=== PATIENT | female | born 1995 | race Two or more races ===

== ENCOUNTER 2019-09-17 05:57 | Observation (INO) | payer MEDICAID, OTHER ==
[~2019-09-17] VITALS: Ht 149.9 cm; Wt 71.7 kg
[2019-09-17] MEDS ORDERED: LACTATED RINGER'S 1,000 ML IV ONE (07:00)
[2019-09-17] MEDS: TERBUTALINE SULFATE 1 MG/ML 1ML VIAL SC SCH ×3 (07:16→07:56)
[2019-09-17] MEDS ORDERED: BETAMETHASONE ACET (6MG/ML) 5ML VIAL IM ONE (09:00)
[2019-09-17] MEDS ORDERED: LACTATED RINGER'S 1,000 ML IV SCH (09:15)
[2019-09-17] MEDS ORDERED: NIFEdipine 10 MG CAP PO SCH (09:15)
[2019-09-18] MEDS ORDERED: PREN-153 OR (21:48)
[2019-09-18] MEDS ORDERED: NIF10C PO (21:48)
== END 2019-09-17 12:27 | disposition home or self-care (01) | DRG 566 ==
LOC: LDRP 05:57
PROVIDERS: ADMIT Specialist; ATTEND Specialist
DX: O62.9 Abnormality of forces of labor, unspecified (principal); Z3A.37 37 weeks gestation of pregnancy
CPT/HCPCS: 59025; 81002; 94760; 96365; 96372; G0378; J0702; J3105

== ENCOUNTER 2019-09-18 01:11 | Inpatient (IN) | payer MEDICAID ==
[~2019-09-18] VITALS: Ht 149.9 cm; Wt 71.7 kg
[2019-09-18] VITALS (16 sets, daily range): BP systolic 99–115; BP diastolic 40–74
[2019-09-18] MEDS ORDERED: TERBUTALINE SULFATE 1 MG/ML 1ML VIAL SC ONE ×3 (01:32→09:00)
[2019-09-18] MEDS: LACTATED RINGER'S 1,000 ML IV SCH ×4 (01:44→15:47)
[2019-09-18] MEDS ORDERED: NIFEdipine 10 MG CAP ONE (01:56)
[2019-09-18] MEDS ORDERED: ceFAZolin 1GM/50ML 50 ML IV ONE (01:56)
[2019-09-18] MEDS: NIFEdipine 10 MG CAP PO SCH ×2 (02:00→07:45)
[2019-09-18] MEDS ORDERED: ceFAZolin 1GM/50ML 50 ML IV SCH ×3 (02:00→18:00)
[2019-09-18 02:28] LABS: Basophils # (auto) 0 10 ^3/uL (0-0.2); Eosinophils # (auto) 0 10 ^3/uL (0-0.8); Hematocrit 37.7 % (36.0-46.0); Hemoglobin 12.3 g/dL (12.2-16.2); Lymphocytes % (auto) 29.7 % (10.0-50.0); Mean Corpuscular Hemoglobin 27.6 pg (28.0-32.0); Mean Corpuscular Hgb Conc. 32.6 g/dL (32.0-36.0); Mean Corpuscular Volume 84.6 fL (80.0-100.0); Monocytes # (auto) 0.6 10 ^3/uL (0-1.3); Neutrophils # (auto) 4.2 10 ^3/uL (1.6-8.6); Neutrophils % (auto) 61.3 % (37.0-80.0); Nucleated Red Blood Cells % 0.1 %; Platelet Count (auto) 264 10^3/uL (140-450); Red Blood Cells 4.45 10^6/uL (4.0-5.20); Red Cell Distribution Width 13.7 % (11.8-14.3); White Blood Cell 6.8 10^3/uL (4.4-10.8)
[2019-09-18] MEDS: TERBUTALINE SULFATE 1 MG/ML 1ML VIAL SC SCH ×3 (02:31→09:00)
[2019-09-18 02:43] LABS: Alcohol, Urine < 3.0 mg/dL (0-5); Amphetamine Screen, Urine NEGATIVE (NEGATIVE); Barbiturate Scree,Urine NEGATIVE (NEGATIVE); Benzodiazephine Screen, Urine NEGATIVE (NEGATIVE); Cannabinoid Screen, Urine NEGATIVE (NEGATIVE); Cocaine Screen, Urine NEGATIVE (NEGATIVE); Opiate Scree,Urine NEGATIVE (NEGATIVE); Phencyclidine Screen, Urine NEGATIVE (NEGATIVE)
[2019-09-18 02:44] LABS: Albumin 2.4 g/dL (3.4-5.0)
[2019-09-18 02:46] LABS: BUN/Creatinine Ratio 10.5
[2019-09-18 02:48] LABS: INR 0.96 (0.9-1.15); Partial Thromboplastin Time 24.6 sec (23.64-32.05)
[2019-09-18 02:49] LABS: Urine Bacteria NONE SEEN /hpf (None Seen); Urine Blood Negative /uL (Negative); Urine Specific Gravity 1.005 (1.001-1.035); Urine WBC 2 /hpf (0 - 5)
[2019-09-18 02:49] LABS: Bilirubin, Total 0.2 mg/dL (0.2-1.0); Total Protein 7.5 g/dL (6.4-8.2)
[2019-09-18 02:53] LABS: Potassium 2.9 mmol/L (3.5-5.1)
[2019-09-18] MEDS ORDERED: POTASSIUM CHL 20 Meq TABLET PO ONE ×2 (02:56→03:15)
[2019-09-18] MEDS ORDERED: POTASSIUM CHL 20MEQ/100ML 200 ML IV ONE (03:04)
[2019-09-18] MEDS: POTASSIUM CHL 20MEQ/100ML 100 ML IV SCH ×2 (05:00→07:58)
[2019-09-18] MEDS ORDERED: BETAMETHASONE ACET (6MG/ML) 5ML VIAL IM SCH (05:30)
[2019-09-18] MEDS ORDERED: NIFEdipine 10 MG CAP PO SCH (06:00)
[2019-09-18] MEDS ORDERED: fentaNYL CITRATE 100 MCG/2 ML VL ONE (09:15)
[2019-09-18] MEDS ORDERED: MORPHINE SULF(PF) 0.5MG/ML 10ML VIAL ONE (09:15)
[2019-09-18] MEDS ORDERED: oxyTOCIN 10 UNIT/ML 10ML VIAL ONE (10:23)
[2019-09-18] MEDS ORDERED: ceFAZolin 1GM VL ONE (10:24)
[2019-09-18] MEDS ORDERED: KETOROLAC TROMETH 15 mg/ml 1ML VL IV PRN (11:15)
[2019-09-18] MEDS ORDERED: HYDROmorphone HCL 2 MG/ML VL IV PRN (11:15)
[2019-09-18] MEDS ORDERED: ONDANSETRON HCL 4 MG/2 ML VIAL IV PRN ×2 (11:15)
[2019-09-18] MEDS ORDERED: ACETAMINOPHEN IV 1000 MG/100ML (10MG/ML) IV ONE (11:15)
[2019-09-18] MEDS ORDERED: KETOROLAC TROMETH 30 MG/ML 1ML VIAL IV PRN (14:45)
[2019-09-18] MEDS ORDERED: TETANUS-DIPTH-ACEL PERTUSSIS 0.5ML SYR Tdap IM ONE (20:00)
[2019-09-18] MEDS ORDERED: NIF10C PO (21:48)
[2019-09-18] MEDS ORDERED: PREN-153 OR (21:48)
[2019-09-19] MEDS: ceFAZolin 1GM/50ML 50 ML IV SCH ×2 (01:50→10:01)
[2019-09-19] MEDS: LACTATED RINGER'S 1,000 ML IV SCH ×2 (01:50→03:06)
[2019-09-19 03:00] VITALS: BP 94/58
[2019-09-19 07:00] LABS: Basophils # (auto) 0 10 ^3/uL (0-0.2); Basophils % (auto) 0.2 % (0.0-2.0); Eosinophils # (auto) 0 10 ^3/uL (0-0.8); Eosinophils % (auto) 0.2 % (0.0-7.0); Hematocrit 26.8 % (36.0-46.0); Hemoglobin 8.9 g/dL (12.2-16.2); Lymphocytes # (auto) 1.9 10 ^3/uL (0.4-5.4); Lymphocytes % (auto) 26.7 % (10.0-50.0); Mean Corpuscular Hgb Conc. 33.3 g/dL (32.0-36.0); Monocytes # (auto) 0.9 10 ^3/uL (0-1.3); Monocytes % (auto) 12.5 % (0.0-12.0); Neutrophils # (auto) 4.4 10 ^3/uL (1.6-8.6); Neutrophils % (auto) 60.4 % (37.0-80.0); Platelet Count (auto) 229 10^3/uL (140-450); Red Blood Cells 3.19 10^6/uL (4.0-5.20); Red Cell Distribution Width 13.7 % (11.8-14.3); White Blood Cell 7.2 10^3/uL (4.4-10.8)
[2019-09-19 07:20] VITALS: BP 103/48
[2019-09-19] MEDS ORDERED: BISACODYL 10 MG RECT SUPP PR PRN (07:45)
[2019-09-19] MEDS ORDERED: HYDROcodone-ACET 5/325MG TAB PO PRN (07:45)
[2019-09-19] MEDS ORDERED: SIMETHICONE 80 MG CHEWABLE TABLET PO PRN (07:45)
[2019-09-19] MEDS: DOCUSATE SOD 100 MG CAP PO SCH ×2 (10:01→22:16)
[2019-09-19] MEDS: DOCUSATE CALCIUM 240 MG CAP PO SCH (10:01)
[2019-09-19] MEDS: HYDROcodone-ACET 5/325MG TAB PO PRN (10:05)
[2019-09-19 10:35] VITALS: BP 96/52
[2019-09-19] MEDS: IBUPROFEN 800 MG TAB PO PRN (15:05)
[2019-09-19 15:15] VITALS: BP 101/66
[2019-09-19 19:00] VITALS: BP 101/61
[2019-09-19] MEDS: FERROUS SULFATE 325 MG TAB PO SCH (22:16)
[2019-09-19 23:00] VITALS: BP 105/63
[2019-09-20] VITALS (7 sets, daily range): BP systolic 92–120; BP diastolic 52–89
[2019-09-20] MEDS: IBUPROFEN 800 MG TAB PO PRN ×3 (00:57→19:37)
[2019-09-20 05:06] LABS: RPR Non Reactive (Non Reactive)
[2019-09-20] MEDS: HYDROcodone-ACET 5/325MG TAB PO PRN ×3 (07:30→22:07)
[2019-09-20] MEDS: DOCUSATE CALCIUM 240 MG CAP PO SCH (10:20)
[2019-09-20] MEDS: FERROUS SULFATE 325 MG TAB PO SCH ×2 (10:20→22:07)
[2019-09-20] MEDS: DOCUSATE SOD 100 MG CAP PO SCH ×2 (10:21→22:07)
[2019-09-20] MEDS ORDERED: TETANUS-DIPTH-ACEL PERTUSSIS 0.5ML SYR Tdap IM ONE (21:45)
[2019-09-21 02:55] VITALS: BP 110/54
[2019-09-21 06:35] VITALS: BP 107/61
[2019-09-21] MEDS: IBUPROFEN 800 MG TAB PO PRN (06:46)
== END 2019-09-21 08:50 | disposition home or self-care (01) | DRG 540 ==
LOC: LDRP 01:11 → OBSVTOIN 01:28 → LDRP 11:22
PROVIDERS: ADMIT Specialist; ATTEND Specialist
PROC: 10D00Z1 Extraction of Products of Conception, Low, Open Approach (ICD-10-PCS; principal; 2019-09-18 09:43)
DX: O99.62 Diseases of the digestive system complicating childbirth (principal); K66.0 Peritoneal adhesions (postprocedural) (postinfection); O34.211 Maternal care for low transverse scar from previous cesarean delivery; Z3A.37 37 weeks gestation of pregnancy; Z37.0 Single live birth
CPT/HCPCS: 36415; 51702; 59025; 80053; 80307; 81001; 81002; 84112; 84132; 85025; 85610; 85730; 86592; 86850; 86900; 86901; 90472; 90715; 94760; 96365; 96366; 96372; 96374; G0378; J0131; J0690; J1885; J2590; J3480

== ENCOUNTER 2021-07-10 18:50 | Emergency (ER) | payer MEDICAID ==
[~2021-07-10] VITALS: Ht 149.9 cm; Wt 59.9 kg
[~2021-07-10 18:50] MED LIST: PREN1TAB71 OR
[2021-07-11 00:32] LABS: Basophils # (auto) 0 10 ^3/uL (0-0.2); Basophils % (auto) 0.5 % (0.0-2.0); Eosinophils # (auto) 0.1 10 ^3/uL (0-0.8); Eosinophils % (auto) 1.2 % (0.0-7.0); Hemoglobin 12.8 g/dL (12.2-16.2); Lymphocytes # (auto) 2.4 10 ^3/uL (0.4-5.4); Lymphocytes % (auto) 27.4 % (10.0-50.0); Mean Corpuscular Hemoglobin 29.1 pg (28.0-32.0); Mean Corpuscular Hgb Conc. 33.7 g/dL (32.0-36.0); Mean Corpuscular Volume 86.5 fL (80.0-100.0); Monocytes # (auto) 0.7 10 ^3/uL (0-1.3); Monocytes % (auto) 7.6 % (0.0-12.0); Neutrophils # (auto) 5.5 10 ^3/uL (1.6-8.6); Neutrophils % (auto) 63.3 % (37.0-80.0); Nucleated Red Blood Cells % 0.1 %; Red Blood Cells 4.39 10^6/uL (4.0-5.20); White Blood Cell 8.7 10^3/uL (4.4-10.8)
[2021-07-11 00:38] LABS: Potassium 3.8 mmol/L (3.5-5.1)
[2021-07-11 00:48] LABS: Albumin 3.2 g/dL (3.4-5.0); BUN/Creatinine Ratio 18.6; Calcium 8.6 mg/dL (8.5-10.1)
[2021-07-11 00:51] LABS: Bilirubin, Total 0.4 mg/dL (0.2-1.0); Total Protein 7.7 g/dL (6.4-8.2)
[2021-07-11 02:42] LABS: Urine Bacteria NONE SEEN /hpf (None Seen); Urine Blood 1+ /uL (Negative); Urine Specific Gravity 1.024 (1.001-1.035); Urine WBC <1 /hpf (0 - 5)
[2021-07-11 04:00] VITALS: BP 108/63
== END 2021-07-11 04:14 | disposition home or self-care (01) ==
LOC: ER 19:52
DX: O20.0 Threatened abortion (principal); Z3A.09 9 weeks gestation of pregnancy
CPT/HCPCS: 36415; 76801; 80053; 81001; 84702; 85025; 86900; 86901

== ENCOUNTER → 2021-07-31 | Outpatient (CLI) | payer MEDICAID ==
[2021-07-31 11:11] LABS: Amphetamine Screen, Urine NEGATIVE (NEGATIVE); Barbiturate Scree,Urine NEGATIVE (NEGATIVE); Benzodiazephine Screen, Urine NEGATIVE (NEGATIVE); Cannabinoid Screen, Urine NEGATIVE (NEGATIVE); Cocaine Screen, Urine NEGATIVE (NEGATIVE); Opiate Scree,Urine NEGATIVE (NEGATIVE); Phencyclidine Screen, Urine NEGATIVE (NEGATIVE)
[2021-07-31 12:56] LABS: Basophils # (auto) 0.1 10 ^3/uL (0-0.2); Basophils % (auto) 0.8 % (0.0-2.0); Eosinophils # (auto) 0.1 10 ^3/uL (0-0.8); Eosinophils % (auto) 0.9 % (0.0-7.0); Hemoglobin 12.8 g/dL (12.2-16.2); Lymphocytes # (auto) 1.7 10 ^3/uL (0.4-5.4); Lymphocytes % (auto) 26.3 % (10.0-50.0); Mean Corpuscular Hemoglobin 29.9 pg (28.0-32.0); Mean Corpuscular Hgb Conc. 34.6 g/dL (32.0-36.0); Mean Corpuscular Volume 86.3 fL (80.0-100.0); Monocytes # (auto) 0.4 10 ^3/uL (0-1.3); Monocytes % (auto) 5.6 % (0.0-12.0); Neutrophils # (auto) 4.4 10 ^3/uL (1.6-8.6); Neutrophils % (auto) 66.4 % (37.0-80.0); Nucleated Red Blood Cells % 0.1 %; Red Blood Cells 4.28 10^6/uL (4.0-5.20); White Blood Cell 6.6 10^3/uL (4.4-10.8)
[2021-08-01 06:06] LABS: RPR Non Reactive (Non Reactive)
== END | disposition home or self-care (01) ==
LOC: LAB 08:46
PROVIDERS: ATTEND Obstetrics & Gynecology
DX: Z31.430 Encounter of female for testing for genetic disease carrier status for procreative management (principal); Z34.00 Encounter for supervision of normal first pregnancy, unspecified trimester; Z20.2 Contact with and (suspected) exposure to infections with a predominantly sexual mode of transmission; Z36.0 Encounter for antenatal screening for chromosomal anomalies
CPT/HCPCS: 36415; 80307; 83036; 84112; 84144; 84702; 85025; 86592; 86703; 86762; 86850; 86900; 86901; 87086; 87340

== ENCOUNTER 2021-08-15 14:14 | Emergency (ER) | payer MEDICAID ==
[~2021-08-15] VITALS: Ht 149.9 cm; Wt 60.8 kg
[2021-08-15 14:50] VITALS: BP 106/57
[2021-08-15] MEDS ORDERED: NITR-87 PO (15:17)
[2021-08-15] MEDS ORDERED: PHEN200T16 PO (15:17)
[2021-08-15 15:36] LABS: Urine Bacteria FEW /hpf (None Seen); Urine Blood TRACE /uL (Negative); Urine Specific Gravity 1.014 (1.001-1.035); Urine WBC 36 /hpf (0 - 5)
== END 2021-08-15 15:42 | disposition home or self-care (01) ==
LOC: ER 14:14
DX: O23.41 Unspecified infection of urinary tract in pregnancy, first trimester (principal); N39.0 Urinary tract infection, site not specified; Z3A.13 13 weeks gestation of pregnancy
CPT/HCPCS: 81001; 81025

== ENCOUNTER → 2021-09-17 | Outpatient (CLI) | payer MEDICAID ==
[~2021-09-17] MED LIST changes: +NITR-87 PO; +PHEN200T16 PO
[2021-09-17 12:47] LABS: Amphetamine Screen, Urine NEGATIVE (NEGATIVE); Barbiturate Scree,Urine NEGATIVE (NEGATIVE); Benzodiazephine Screen, Urine NEGATIVE (NEGATIVE); Cannabinoid Screen, Urine NEGATIVE (NEGATIVE); Cocaine Screen, Urine NEGATIVE (NEGATIVE); Opiate Scree,Urine NEGATIVE (NEGATIVE); Phencyclidine Screen, Urine NEGATIVE (NEGATIVE)
== END | disposition home or self-care (01) ==
LOC: LAB 11:44
PROVIDERS: ATTEND Obstetrics & Gynecology
DX: Z34.80 Encounter for supervision of other normal pregnancy, unspecified trimester (principal); Z36.0 Encounter for antenatal screening for chromosomal anomalies
CPT/HCPCS: 80307; 87086

== ENCOUNTER → 2021-11-05 | Outpatient (CLI) | payer MEDICAID ==
[2021-11-05 10:28] LABS: Alcohol, Urine < 3.0 mg/dL (0-10); Amphetamine Screen, Urine NEGATIVE (NEGATIVE); Barbiturate Scree,Urine NEGATIVE (NEGATIVE); Benzodiazephine Screen, Urine NEGATIVE (NEGATIVE); Cannabinoid Screen, Urine NEGATIVE (NEGATIVE); Cocaine Screen, Urine NEGATIVE (NEGATIVE); Opiate Scree,Urine NEGATIVE (NEGATIVE); Phencyclidine Screen, Urine NEGATIVE (NEGATIVE)
== END | disposition home or self-care (01) ==
LOC: LAB 09:30
PROVIDERS: ATTEND Obstetrics & Gynecology
DX: Z34.00 Encounter for supervision of normal first pregnancy, unspecified trimester (principal)
CPT/HCPCS: 80307

== ENCOUNTER 2022-01-17 08:28 | Observation (INO) | payer MEDICAID | END 2022-01-17 10:35 | disposition home or self-care (01) | LOC: LDRP 08:28 → UNDOADMOB 08:28 → LDRP 09:15 | PROVIDERS: ADMIT Obstetrics & Gynecology; ATTEND Obstetrics & Gynecology | DX: O24.419 Gestational diabetes mellitus in pregnancy, unspecified control (principal); O34.63 Maternal care for abnormality of vagina, third trimester; N89.8 Other specified noninflammatory disorders of vagina; Z3A.35 35 weeks gestation of pregnancy | CPT/HCPCS: 59025; 76818; 81002; 82948; 82962; 94760; G0378 ==

== ENCOUNTER 2022-01-20 08:35 | Observation (INO) | payer MEDICAID | END 2022-01-20 17:16 | disposition home or self-care (01) | LOC: UNDOADMOB 13:46 → LDRP 13:46 | PROVIDERS: ADMIT Obstetrics & Gynecology Obstetrics; ATTEND Obstetrics & Gynecology Obstetrics | DX: O24.419 Gestational diabetes mellitus in pregnancy, unspecified control (principal); O26.893 Other specified pregnancy related conditions, third trimester; N89.8 Other specified noninflammatory disorders of vagina; Z3A.35 35 weeks gestation of pregnancy | CPT/HCPCS: 59025; 76818; 81002; 82948; 82962; G0378 ==

== ENCOUNTER 2022-01-22 13:48 | Observation (INO) | payer MEDICAID ==
[2022-01-23] MEDS ORDERED: TERBUTALINE SULFATE 1 MG/ML 1ML VIAL SC ONE (14:30)
[2022-01-23] MEDS ORDERED: METF-370 PO (16:45)
== END 2022-01-23 14:25 | disposition home or self-care (01) ==
LOC: LDRP 01-23 12:25
PROVIDERS: ADMIT Obstetrics & Gynecology; ATTEND Obstetrics & Gynecology
DX: O24.415 Gestational diabetes mellitus in pregnancy, controlled by oral hypoglycemic drugs (principal); O99.891 Other specified diseases and conditions complicating pregnancy; M54.50 Low back pain, unspecified; Z3A.36 36 weeks gestation of pregnancy; Z79.84 Long term (current) use of oral hypoglycemic drugs; Z98.891 History of uterine scar from previous surgery
CPT/HCPCS: 59025; 76818; 82962; G0378

== ENCOUNTER 2022-01-23 13:04 | Observation (INO) | payer MEDICAID ==
[2022-01-23] MEDS ORDERED: METF-370 PO (16:45)
== END 2022-01-23 14:25 | disposition home or self-care (01) ==
LOC: LDRP 13:04
PROVIDERS: ADMIT Obstetrics & Gynecology; ATTEND Obstetrics & Gynecology
DX: O36.8330 Maternal care for abnormalities of the fetal heart rate or rhythm, third trimester, not applicable or unspecified (principal); O24.419 Gestational diabetes mellitus in pregnancy, unspecified control; Z3A.36 36 weeks gestation of pregnancy

== ENCOUNTER 2022-01-23 15:50 | Observation (INO) | payer MEDICAID ==
[~2022-01-23] VITALS: Ht 154.9 cm; Wt 69.4 kg
[2022-01-23] MEDS ORDERED: TERBUTALINE SULFATE 1 MG/ML 1ML VIAL SC SCH (16:15)
[2022-01-23] MEDS ORDERED: METF-370 PO (16:45)
== END 2022-01-23 17:46 | disposition home or self-care (01) ==
LOC: LDRP 15:50
PROVIDERS: ADMIT Obstetrics & Gynecology; ATTEND Obstetrics & Gynecology
DX: O24.415 Gestational diabetes mellitus in pregnancy, controlled by oral hypoglycemic drugs (principal); O99.891 Other specified diseases and conditions complicating pregnancy; M54.9 Dorsalgia, unspecified; R10.9 Unspecified abdominal pain; O62.9 Abnormality of forces of labor, unspecified; Z3A.36 36 weeks gestation of pregnancy; Z79.84 Long term (current) use of oral hypoglycemic drugs; Z79.899 Other long term (current) drug therapy
CPT/HCPCS: 59025; 81002; 96372; G0378; J3105

== ENCOUNTER 2022-01-27 07:22 | Observation (INO) | payer MEDICAID ==
[~2022-01-27 07:22] MED LIST changes: +METF-370 PO
== END 2022-01-27 13:12 | disposition home or self-care (01) ==
LOC: UNDOADMOB 11:40 → LDRP 11:40
PROVIDERS: ADMIT Obstetrics & Gynecology Obstetrics; ATTEND Obstetrics & Gynecology Obstetrics
DX: O24.419 Gestational diabetes mellitus in pregnancy, unspecified control (principal); Z3A.36 36 weeks gestation of pregnancy
CPT/HCPCS: 59025; 76818; 81002; 82948; 82962; G0378

== ENCOUNTER 2022-01-30 10:46 | Inpatient (IN) | payer MEDICAID ==
[~2022-01-30] VITALS: Ht 149.9 cm; Wt 68.9 kg
[2022-01-30] MEDS ORDERED: ceFAZolin 1GM/50ML 50 ML IV ONE (13:30)
[2022-01-30] MEDS ORDERED: LACTATED RINGER'S 1,000 ML IV SCH (13:30)
[2022-01-30] MEDS ORDERED: LACTATED RINGER'S 1,000 ML IV ONE (13:30)
[2022-01-30] MEDS ORDERED: BETAMETHASONE ACET (30mg/5ml) 5ml Vial 6mg/ml IM ONE (13:45)
[2022-01-30 14:00] LABS: Basophils # (auto) 0 10 ^3/uL (0-0.2); Eosinophils # (auto) 0.1 10 ^3/uL (0-0.8); Eosinophils % (auto) 0.8 % (0.0-7.0); Lymphocytes # (auto) 1.4 10 ^3/uL (0.4-5.4); Monocytes # (auto) 0.5 10 ^3/uL (0-1.3); Nucleated Red Blood Cells % 0.1 %
[2022-01-30 14:02] LABS: Basophils % (auto) 0.6 % (0.0-2.0); Hematocrit 32.1 % (36.0-46.0); Hemoglobin 10.2 g/dL (12.2-16.2); Lymphocytes % (auto) 20.1 % (10.0-50.0); Mean Corpuscular Hemoglobin 25.1 pg (28.0-32.0); Mean Corpuscular Hgb Conc. 31.6 g/dL (32.0-36.0); Mean Corpuscular Volume 79.5 fL (80.0-100.0); Monocytes % (auto) 7.6 % (0.0-12.0); Neutrophils % (auto) 70.9 % (37.0-80.0); Red Blood Cells 4.04 10^6/uL (4.0-5.20); Red Cell Distribution Width 14.5 % (11.8-14.3)
[2022-01-30 14:08] LABS: Urine Bacteria FEW /hpf (None Seen); Urine Blood Negative /uL (Negative); Urine Hyaline Cast FEW /lpf (0 - 2); Urine Specific Gravity 1.011 (1.001-1.035); Urine WBC 16 /hpf (0 - 5)
[2022-01-30 14:17] LABS: INR 0.9 (0.9-1.15)
[2022-01-30 14:20] LABS: Albumin 2.5 g/dL (3.4-5.0); Calcium 8.4 mg/dL (8.5-10.1); Potassium 3.6 mmol/L (3.5-5.1)
[2022-01-30] MEDS ORDERED: fentaNYL CITRATE 100 MCG/2 ML VL IV ONE (14:21)
[2022-01-30] MEDS ORDERED: MORPHINE SULF PF 5 MG/10 ML VIAL IV ONE (14:21)
[2022-01-30] MEDS ORDERED: OXYTOCIN 10UNIT/ML 1ML VIAL IV ONE (14:21)
[2022-01-30] MEDS ORDERED: PHENYLEPHRINE HCL 10 MG/ML VL IV ONE (14:21)
[2022-01-30 14:24] LABS: BUN/Creatinine Ratio 10.6; Bilirubin, Total 0.2 mg/dL (0.2-1.0); Total Protein 6.9 g/dL (6.4-8.2)
[2022-01-30] MEDS ORDERED: HYDR-4902 PO (14:28)
[2022-01-30] MEDS ORDERED: IBUP800T27 PO (14:28)
[2022-01-30] MEDS ORDERED: DOCU-94 PO (14:28)
[2022-01-30 14:30] LABS: Alcohol, Urine < 3.0 mg/dL (0-10); Amphetamine Screen, Urine NEGATIVE (NEGATIVE); Barbiturate Scree,Urine NEGATIVE (NEGATIVE); Benzodiazephine Screen, Urine NEGATIVE (NEGATIVE); Cannabinoid Screen, Urine NEGATIVE (NEGATIVE); Cocaine Screen, Urine NEGATIVE (NEGATIVE); Opiate Scree,Urine NEGATIVE (NEGATIVE); Phencyclidine Screen, Urine NEGATIVE (NEGATIVE)
[2022-01-30] MEDS ORDERED: ONDANSETRON HCL 4 MG/2 ML VIAL IV PRN ×2 (14:30→15:15)
[2022-01-30] MEDS ORDERED: LACT. RINGERS/OXYTOCIN 20UNITS 1,000 ML IV ONE (14:30)
[2022-01-30] MEDS ORDERED: GUM (CHEWING) 1 GUM CHEW CHEW ONE (14:30)
[2022-01-30] MEDS ORDERED: TETRACAINE 1% INJ 2 ML VIAL IJ ONE (14:33)
[2022-01-30] MEDS ORDERED: diphenhdrAMINE HCL 50 MG/1 ML VL IV PRN (15:15)
[2022-01-30] MEDS ORDERED: KETOROLAC TROMETH 30 MG/ML 1ML VIAL IV PRN (15:15)
[2022-01-30] MEDS ORDERED: MIDAZOLAM HCL 2MG/2ML 2ml VIAL (1mg/ml) IV PRN (15:15)
[2022-01-30] MEDS ORDERED: NALOXONE HCL 0.4 MG/ML VIAL IV PRN (15:15)
[2022-01-30] MEDS ORDERED: DexAMETHasone SOD PHOS 10MG/1ML VIAL INJ IV PRN (15:15)
[2022-01-30] MEDS ORDERED: ACCU-CHEK COMFORT CURVE STRIP VI ONE (15:15)
[2022-01-30] MEDS ORDERED: ePHEDrine SULFATE 50 MG/ML AMP IV PRN (15:15)
[2022-01-30] MEDS ORDERED: LABETALOL HCL 5 MG/ML 4ML SYRINGE IV PRN (15:15)
[2022-01-30] MEDS ORDERED: HYDROmorphone HCL 2 MG/ML VL/or syr IV PRN (15:15)
[2022-01-30] MEDS ORDERED: NALBUPHINE HCL 10 MG/1ml INJECTION SUBCUT ONE (15:15)
[2022-01-30] MEDS: ACETAMINOPHEN IV 1000 MG/100ML (10MG/ML) IV PRN (18:36)
[2022-01-30 19:00] VITALS: BP 100/54
[2022-01-30 19:30] VITALS: BP 100/54
[2022-01-30 20:00] VITALS: BP 88/47
[2022-01-30 21:00] VITALS: BP 85/43
[2022-01-30] MEDS: ceFAZolin 1GM/50ML 50 ML IV SCH (21:46)
[2022-01-30 22:00] VITALS: BP 108/50
[2022-01-30 23:00] VITALS: BP 106/48
[2022-01-30 23:43] LABS: Basophils # (auto) 0.1 10 ^3/uL (0-0.2); Basophils % (auto) 0.3 % (0.0-2.0); Eosinophils # (auto) 0 10 ^3/uL (0-0.8); Hematocrit 33.2 % (36.0-46.0); Hemoglobin 10.5 g/dL (12.2-16.2); Lymphocytes # (auto) 0.9 10 ^3/uL (0.4-5.4); Lymphocytes % (auto) 5.4 % (10.0-50.0); Mean Corpuscular Hemoglobin 24.9 pg (28.0-32.0); Mean Corpuscular Hgb Conc. 31.6 g/dL (32.0-36.0); Mean Corpuscular Volume 78.6 fL (80.0-100.0); Monocytes # (auto) 0.6 10 ^3/uL (0-1.3); Monocytes % (auto) 3.7 % (0.0-12.0); Neutrophils # (auto) 15.5 10 ^3/uL (1.6-8.6); Neutrophils % (auto) 90.6 % (37.0-80.0); Red Blood Cells 4.22 10^6/uL (4.0-5.20); Red Cell Distribution Width 14.5 % (11.8-14.3); White Blood Cell 17.1 10^3/uL (4.4-10.8)
[2022-01-31] VITALS (16 sets, daily range): BP systolic 80–101; BP diastolic 31–54
[2022-01-31] MEDS: ACETAMINOPHEN IV 1000 MG/100ML (10MG/ML) IV PRN (04:22)
[2022-01-31] MEDS: ceFAZolin 1GM/50ML 50 ML IV SCH ×2 (05:31→13:38)
[2022-01-31 06:06] LABS: RPR Non Reactive (Non Reactive)
[2022-01-31 06:20] LABS: Basophils # (auto) 0 10 ^3/uL (0-0.2); Eosinophils # (auto) 0 10 ^3/uL (0-0.8); Hemoglobin 9.4 g/dL (12.2-16.2); Lymphocytes # (auto) 1.1 10 ^3/uL (0.4-5.4); Lymphocytes % (auto) 7.7 % (10.0-50.0); Mean Corpuscular Volume 78.1 fL (80.0-100.0); Monocytes # (auto) 0.8 10 ^3/uL (0-1.3)
[2022-01-31 06:23] LABS: Hematocrit 29.4 % (36.0-46.0); Mean Corpuscular Hemoglobin 25.1 pg (28.0-32.0); Mean Corpuscular Hgb Conc. 32.2 g/dL (32.0-36.0); Monocytes % (auto) 5.5 % (0.0-12.0); Neutrophils # (auto) 12.4 10 ^3/uL (1.6-8.6); Neutrophils % (auto) 86.8 % (37.0-80.0); Red Blood Cells 3.76 10^6/uL (4.0-5.20); Red Cell Distribution Width 14.5 % (11.8-14.3); White Blood Cell 14.3 10^3/uL (4.4-10.8)
[2022-01-31] MEDS ORDERED: HYDROcodone-ACET 5/325MG TAB PO PRN (12:15)
[2022-01-31] MEDS: HYDROcodone-ACET 5/325MG TAB PO PRN ×3 (12:29→22:48)
[2022-01-31] MEDS: SIMETHICONE 80 MG CHEWABLE TABLET PO SCH ×2 (22:00→22:36)
[2022-02-01] VITALS (7 sets, daily range): BP systolic 89–120; BP diastolic 45–63
[2022-02-01] MEDS: IBUPROFEN 800 MG TAB PO PRN ×3 (02:38→22:45)
[2022-02-01] MEDS: SIMETHICONE 80 MG CHEWABLE TABLET PO SCH ×4 (05:50→22:24)
[2022-02-01] MEDS ORDERED: BISACODYL 10 MG RECT SUPP PR PRN (12:15)
[2022-02-01] MEDS: HYDROcodone-ACET 5/325MG TAB PO PRN ×3 (12:30→22:25)
[2022-02-01] MEDS: ceFAZolin 1GM/50ML 50 ML IV SCH ×2 (12:31→22:26)
[2022-02-01] MEDS ORDERED: ACETAMINOPHEN 325 MG TAB PO ONE (14:00)
[2022-02-02 03:23] VITALS: BP 112/59
[2022-02-02] MEDS: HYDROcodone-ACET 5/325MG TAB PO PRN ×4 (04:17→18:54)
[2022-02-02 05:23] LABS: Urine Bacteria NONE SEEN /hpf (None Seen); Urine Blood 3+ /uL (Negative); Urine Specific Gravity 1.011 (1.001-1.035); Urine WBC <1 /hpf (0 - 5)
[2022-02-02] MEDS: ceFAZolin 1GM/50ML 50 ML IV SCH ×2 (06:14→14:00)
[2022-02-02] MEDS: SIMETHICONE 80 MG CHEWABLE TABLET PO SCH ×4 (06:14→22:30)
[2022-02-02 07:10] VITALS: BP 109/66
[2022-02-02] MEDS ORDERED: CEPH500T PO (07:17)
[2022-02-02 11:00] VITALS: BP 115/64
[2022-02-02 15:00] VITALS: BP 121/70
[2022-02-02] MEDS: IBUPROFEN 800 MG TAB PO PRN (17:19)
[2022-02-02 19:30] VITALS: BP 118/68
[2022-02-02] MEDS: CEPHALEXIN 250 MG CAP PO SCH (22:30)
[2022-02-02 23:00] VITALS: BP 109/72
[2022-02-03 03:00] VITALS: BP 117/70
[2022-02-03] MEDS: IBUPROFEN 800 MG TAB PO PRN (04:13)
[2022-02-03] MEDS: CEPHALEXIN 250 MG CAP PO SCH ×2 (06:25)
[2022-02-03] MEDS: SIMETHICONE 80 MG CHEWABLE TABLET PO SCH (06:25)
[2022-02-03 06:50] VITALS: BP 101/56
== END 2022-02-03 09:34 | disposition home or self-care (01) | DRG 540 ==
LOC: LDRP 12:07 → OBSVTOIN 13:12 → LDRP 13:28
PROVIDERS: ADMIT Obstetrics & Gynecology; ATTEND Obstetrics & Gynecology
PROC: 10D00Z1 Extraction of Products of Conception, Low, Open Approach (ICD-10-PCS; principal; 2022-02-01)
DX: O41.03X0 Oligohydramnios, third trimester, not applicable or unspecified (principal); O24.429 Gestational diabetes mellitus in childbirth, unspecified control; O34.211 Maternal care for low transverse scar from previous cesarean delivery; Z20.822 Contact with and (suspected) exposure to COVID-19; Z37.0 Single live birth; Z3A.37 37 weeks gestation of pregnancy
CPT/HCPCS: 36415; 59025; 71045; 76818; 80053; 80307; 81001; 82948; 82962; 85025; 85610; 85730; 86592; 86850; 86900; 86901; 87086; 94760; 94762; 96360; 96361; 96365; 96366; 96372; G0378; J0131; J0690; J2590

== ENCOUNTER 2022-02-27 16:02 | Emergency (ER) | payer MEDICAID ==
[~2022-02-27] VITALS: Ht 149.9 cm; Wt 60.9 kg
[~2022-02-27 16:02] MED LIST changes: +CEPH500T PO; +DOCU-94 PO; +HYDR-4902 PO; +IBUP800T27 PO
[2022-02-27 16:22] VITALS: BP 101/51
[2022-02-27] MEDS ORDERED: CEPH-510 PO (17:27)
[2022-02-27] MEDS ORDERED: NAPR500T31 PO (17:27)
[2022-02-27] MEDS ORDERED: cefTRIAXone SOD 1,000 MG VL IM ONE (17:30)
== END 2022-02-27 17:57 | disposition home or self-care (01) ==
LOC: ER 16:02
DX: N61.0 Mastitis without abscess (principal)
CPT/HCPCS: 96372; 99283; J0696

== ENCOUNTER 2022-04-13 20:06 | Emergency (ER) | payer MEDICAID ==
[~2022-04-13] VITALS: Ht 149.9 cm; Wt 55.4 kg
[~2022-04-13 20:06] MED LIST changes: +CEPH-510 PO; +NAPR500T31 PO
[2022-04-13 20:32] VITALS: BP 102/65
[2022-04-13 21:26] LABS: Urine Bacteria NONE SEEN /hpf (None Seen); Urine Blood Negative /uL (Negative); Urine Mucus FEW (None Seen); Urine Specific Gravity 1.021 (1.001-1.035); Urine WBC 1 /hpf (0 - 5)
[2022-04-13] MEDS ORDERED: IBUPROFEN 800 MG TAB PO ONE (21:45)
== END 2022-04-13 21:53 | disposition home or self-care (01) ==
LOC: ER 20:11
DX: G89.18 Other acute postprocedural pain (principal); Z98.890 Other specified postprocedural states; Z79.899 Other long term (current) drug therapy
CPT/HCPCS: 81001

== ENCOUNTER 2025-05-04 12:01 | Emergency (ER) | payer MEDICAID ==
[~2025-05-04] VITALS: Ht 149.9 cm; Wt 59.1 kg
[~2025-05-04 12:01] MED LIST changes: +IBUP-1456 PO; -IBUP800T27 PO; +NAPR-746 PO; -NAPR500T31 PO; +PHEN-922 PO; -PHEN200T16 PO
[2025-05-04 12:04] VITALS: BP 107/81; PULSE 88; RESP 18; TEMP 98; O2SAT 98
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
[2025-05-04 13:09] LABS: Hematocrit 41.0 % (36.0-46.0); Hemoglobin 13.9 g/dL (12.2-16.2); Mean Corpuscular Hemoglobin 29.0 pg (28.0-32.0); Mean Corpuscular Volume 85.4 fL (80.0-100.0); Nucleated Red Blood Cells % 0.1 %
[2025-05-04] MEDS: IOHEXOL 300 MG/ML 100ML BOTTLE IJ ONE (13:12)
[2025-05-04 13:18] LABS: Chloride 105 mmol/L (98-107); Sodium 144 mmol/L (136-145)
[2025-05-04 13:19] LABS: Anion Gap 11 (5-15); Calcium 9.6 mg/dL (8.7-10.4); Carbon Dioxide 28 mmol/L (20-31)
[2025-05-04 13:24] LABS: BUN/Creatinine Ratio 10.6 (10.0-20.0); Glucose 89 mg/dL (74-106)
[2025-05-04 13:26] LABS: Blood Urea Nitrogen 7 mg/dL (9-23); Potassium 3.4 mmol/L (3.5-5.1)
== END 2025-05-04 16:29 | disposition left against medical advice (07) ==
LOC: ER 12:01
DX: S09.8XXA Other specified injuries of head, initial encounter (principal); S39.91XA Unspecified injury of abdomen, initial encounter; S29.9XXA Unspecified injury of thorax, initial encounter; M54.50 Low back pain, unspecified; R10.24 Suprapubic pain; R51.9 Headache, unspecified; Z79.899 Other long term (current) drug therapy; Z79.84 Long term (current) use of oral hypoglycemic drugs; Y04.0XXA Assault by unarmed brawl or fight, initial encounter; Y93.89 Activity, other specified; Y92.89 Other specified places as the place of occurrence of the external cause; Y99.8 Other external cause status
CPT/HCPCS: 36415; 80048; 81025; 85025